=== PATIENT | male | born 1980 | race Caucasian/White ===

== ENCOUNTER → 2019-09-02 10:29 | Outpatient (CLI) | payer BC, SELFPAY ==
[2019-09-02 10:05] VITALS: BMI 28.8
[2019-09-02 12:16] LABS: Hematocrit 46.8 % (40-54); Hemoglobin 15.7 g/dL (13.0-16.5); Mean Corp Hgb Conc 33.5 g/dL (32-36); Mean Corpuscular Hgb 29.6 pg (27.0-32.0); Mean Corpuscular Volume 88.3 fL (80-94); Mean Platelet Vol. 9.4 fl (6.2-12.0); Platelet Count 234 K/mm3 (150-450); RBC Distribution Width CV 11.7 % (11.6-14.6); RBC Distribution Width SD 37.8 fl (35.1-43.9); White Blood Count 4.8 K/mm3 (4.4-11.0)
[2019-09-02 13:03] LABS: ALB/GLOB Ratio 0.9 RATIO (0.9-2.4); AST(SGOT) 20 U/L (15-37); Alanine Aminotransfer ALT/SGPT 24 U/L (16-61); Albumin, Serum 3.6 g/dL (3.2-5.0); Alkaline Phosphatase 69 U/L (45-117); Anion Gap 7 (5-15); BUN 9 mg/dL (7-18); BUN/Creat Ratio 10.7 RATIO (10-20); Calcium,Total 8.8 mg/dL (8.5-10.1); Chloride 104 mmol/L (98-107); Cholesterol 168 mg/dL (200); Creatinine, Serum 0.84 mg/dL (0.70-1.30); EST Glomerular Filtration Rate 109 mL/min (>60); Est Glom Filt Rate - Afr Amer 132 mL/min (>60); Globulin 4.2 g/dL (2.2-4.2); Glucose 84 mg/dL (74-106); High Density Lipoprotein 38 mg/dL; Potassium 3.6 mmol/L (3.5-5.1); Protein, Total 7.8 g/dL (6.4-8.2); Sodium Level 137 mmol/L (136-145); Thyroid Stim Hormone (TSH) 1.12 uIU/mL (0.358-3.74); Triglycerides 103 mg/dL; Very Low Density Lipoprotein 21 mg/dL (5-40)
[2019-09-05 12:07] LABS: Testosterone, Free 9.11 ng/dL (5.00-21.00)
[2019-09-05 15:24] LABS: Testosterone, Total 253 ng/dL (264-916)
== END ==
PROVIDERS: PCP Internal Medicine; Visit Provider Nurse Practitioner Family
DX: N52.9 Male erectile dysfunction, unspecified (principal); Z13.220 Encounter for screening for lipoid disorders
CPT/HCPCS: 36415; 80053; 80061; 84402; 84403; 84443; 85027

== ENCOUNTER 2021-07-22 20:53 | Emergency (ER) | payer BC, SELFPAY ==
[2021-07-22 20:56] VITALS: BP 122/96; PULSE 98; RESP 16; TEMP 36.7; O2SAT 96; BMI 29.5
--- NOTE | 2021-07-22 21:26 | EKG12_ITS ---
Test Reason : CP Blood Pressure : / mmHG Vent. Rate : 094 BPM Atrial Rate : 094 BPM P-R Int : 162 ms QRS Dur : 084 ms QT Int : 338 ms P-R-T Axes : 053 048 038 degrees QTc Int : 422 ms Normal sinus rhythm Nonspecific T wave abnormality Abnormal ECG Confirmed by ESTUARDO MEYER, DANIEL ([id number]), legal editor THIERRY SANTOS ([id number]) on 07/24/2021 10:16:26 AM Referred By: Confirmed By:DANIEL MARTE MD
--- NOTE | 2021-07-22 21:35 | EX.ED.DYSGE1 ---
HPI History of Present Illness Chief Complaint: Chest Other Informant: patient Narrative Narrative: Patient presented to the emergency room on day 10 of COVID-19 illness. He states that he had been doing quite well with mild symptoms until the past couple days when he has developed a more pronounced cough and shortness of breath. He is not Covid vaccinated. He states he does not have any significant comorbidities. PFSH PFSH Medical History no medical history no medical history Home Medications ibuprofen 200 mg tablet 200 mg PO Q6H PRN 09/23/19 [History Last Taken Unknown] pseudoephedrine HCl 120 mg tablet,extended release 120 mg PO Q12H 09/23/19 [History Last Taken Unknown] dexamethasone 6 mg PO DAILY #6 tab 07/22/21 [Rx Last Taken Unknown] Allergy/AdvReac Type Severity Reaction Status Date / Time No Known Allergies Allergy Verified 07/22/21 21:01 Family History Grandfather No problems noted. Social History Smoking Status: Never smoker alcohol intake: current alcohol intake frequency: holidays/special occasions only substance use type: does not use what type of physical activity do you participate in: none ROS ROS ED Constitutional Constitutional ED: Reports chills and fever(s); Denies weight loss Eyes Eyes: Denies change in vision or diplopia ENT ENT ED: Reports rhinorrhea; Denies ear pain or sore throat Cardiovascular Cardiovascular: Denies chest pain, orthopnea, palpitations or racing heartbeat Respiratory/Chest Respiratory/Chest: Reports cough and dyspnea; Denies orthopnea Gastrointestinal Gastrointestinal: Denies abdominal pain, diarrhea, nausea or vomiting Genitourinary Genitourinary ED: Denies dysuria, hematuria or urinary frequency Musculoskeletal Musculoskeletal: Reports myalgias; Denies arthralgias Integumentary Denies abscess or rash Neurologic Neurologic: Reports headache(s); Denies weakness Psychiatric Psychiatric: Denies anxiety, depression, suicidal ideation or suicidal thoughts Endocrine Endocrinology: Denies polydipsia, polyphagia or polyuria Allergic/Immunologic Allergic/Immunologic ED: Denies mouth swelling, tongue swelling or urticaria EXAM Physical Exam Const Vital Signs: 07/22/21 20:56 Temperature 98.0 F Temperature Source Temporal Pulse Rate 98 Respiratory Rate 16 Blood Pressure 122/96 H Blood Pressure Mean 104 Pulse Ox 96 Oxygen Delivery Method Room Air Positive well nourished and well developed General Appearance ED: well developed HEENT Reports normocephalic, head/scalp atraumatic and moist mucous membranes Eyes PERRL and EOMs intact bilaterally Neck no lymphadenopathy, supple and no JVD Resp normal respiratory effort and clear to auscultation bilaterally Cardio regular rate, regular rhythm and no murmurs GI normal to inspection, nondistended, normoactive bowel sounds and non-tender Palpation: soft Back/Spine no CVA tenderness and normal ROM Extremity normal to inspection General Extremety ED: Negative for edema General Extremity: Negative for edema Neuro oriented x3 and CN's II-XII intact bilaterally Sensorium / Orientation: alert Motor Exam: strength 5/5 throughout Psych mental status grossly normal Mood & Affect: Negative for depressed or tearful Skin no rashes or lesions noted and no wounds MDM MDM MDM Narrative Medical decision making narrative: My interpretation of the chest x-ray is no acute process. Patient is not in any respiratory distress. Is not requiring supplemental oxygen. I will be started him on albuterol MDI as well as some dexamethasone. Follow-up as needed return if worsening or concerns EKG Initial EKG: Attestation: I personally reviewed and interpreted this EKG as follows: Comments: Normal sinus rhythm with a ventricular rate of 94 bpm. Discharge Plan Triage Chief Complaint: Chest Other Other Complaint: Chest Pain ED Provider: Osmin Antunez Dx/Rx/DC Orders Clinical Impression: COVID-19, Acute dyspnea Instructions: Coronavirus Disease 2019 (COVID-19): Caring for Yourself or Others Prescriptions: New dexamethasone 6 MG tablet 6 mg PO DAILY Qty: 6 RF: 0 No Action pseudoephedrine HCl [Sudafed 12 Hour] 120 mg tablet extended release 120 mg PO Q12H RF: 0 ibuprofen [Advil] 200 mg tablet 200 mg PO Q6H PRNRF: 0 Primary Care Provider: Sarahi Robertson Referrals: Sarahi Robertson MD [Primary Care Provider] - As Needed Disposition Disposition: Home, Self Care
--- NOTE | 2021-07-22 21:43 | RAD_ITS ---
HISTORY: covid 19 EXAMINATION/TECHNIQUE: XR Chest 1 View: Portable upright AP chest x-ray COMPARISON: None FINDINGS: LINES/DEVICES: None. LUNGS: No consolidation, edema or effusion. No pneumothorax. MEDIASTINUM AND CARDIOVASCULAR STRUCTURES: Cardiac silhouette not enlarged. Central airways and mediastinal contour are unremarkable. BONES AND SOFT TISSUES: No acute bony abnormalities. RAD/Chest 1 View (Portable) IMPRESSION: No radiographic evidence of acute cardiopulmonary disease. at [id number] Reported and signed by: Thiago Baum MD Electronically Signed: Thiago Baum MD at 22:37 EST Tel , Service support ,
[2021-07-22] MEDS: dexAMETHasone 4 MG Tablet 6 MG PO (21:46)
[2021-07-22] MEDS: INHALER, ASSIST DEVICES 1 EACH SPACER INHALATION (22:08)
== END 2021-07-22 22:19 | disposition home or self-care (01) ==
PROVIDERS: Emergency Provider Emergency Medicine; PCP Internal Medicine
DX: U07.1 COVID-19 (principal); R06.00 Dyspnea, unspecified
CPT/HCPCS: 71045; 93005; 99283